=== PATIENT | male | born 1950 | race Caucasian/White ===

== ENCOUNTER 2019-03-16 11:38 | Day surgery (SDC) | payer MEDICARE, OTHER ==
[~2019-03-16] VITALS: Ht 167.6 cm; Wt 74.6 kg
[2019-03-16] MEDS ORDERED: ASPI81TA52 PO (12:22)
[2019-03-16] MEDS ORDERED: SOD CHLORIDE 0.9% 1,000 ML IV SCH (12:22)
[2019-03-16] MEDS ORDERED: ATOR-2 PO (12:23)
[2019-03-16] MEDS ORDERED: LIDOCAINE 1% (MDV) 20 ML INJ ONE (12:37)
[2019-03-16 12:55] VITALS: Ht 167.6 cm; Wt 74.6 kg
[2019-03-16 12:57] VITALS: BP 131/72; PULSE 64; RESP 16
--- NOTE | 2019-03-16 13:25 | PREAC ---
Date/Time of Note Date/Time of Note DATE: 03/16/19 TIME: 13:23 Anesthesia Eval and Record Evaluation Time Pre-Procedure Interview DATE: 03/16/19 TIME: 13:23 Age 69 Sex male NPO: 8 hrs Preoperative diagnosis Neutropenia Planned procedure Bone marrow Biopsy Past Medical History Past Medical History: Includes Cardio: HTN, Dyslipidemia Heme: Thrombocytopenia Surgery & Anesthesia Issues No known issue Meds Anticoagulation: No Beta Karel within 24 hr: No Reason Beta Karel not given: Pt. not on B-Karel Reported Medications Atorvastatin* (Atorvastatin*) 80 Mg Tablet, 80 MG PO QHS, #30 TAB 03/16/19 Aspirin (Low Dose Aspirin) 81 Mg Tablet.dr, 81 MG PO DAILY, #30 TAB 03/16/19 Current Medications Sodium Chloride 1,000 ml @ 30 mls/hr Q24H IV Last administered on 03/16/19at 12:51; Admin Dose 30 MLS/HR; Start 03/16/19 at 12:22 Meds reviewed: Yes Allergies Coded Allergies: No Known Allergy (Verified , 03/16/19) Allergies Reviewed: Yes Labs/Studies Labs Reviewed: Reviewed by anesthesiologist test: N/A Studies: ECG Pre-procedure Exam Last vitals Vital Signs Date Temp Pulse Resp B/P (MAP) Pulse Ox O2 O2 Flow FiO2 Time Delivery Rate 03/16/19 97.9 64 16 131/72 99 Room Air 12:57 (91) Airway: Adequate mouth opening, Adequate thyromental dist Mallampati: Mallampati II Teeth: Normal Lung: Normal Heart: Normal ASA Physical Status ASA physical status: 3 Emergency: None Planned Anesthetic General/MAC: MAC Planned Pain Management Parenteral pain med Pre-operative Attestations Prior to commencing anesthesia and surgery, the patient was re-evaluated, there was verification of: *The patient's identity *The results of appropriate recent lab work and preoperative vital signs *The above evaluation not changing prior to induction *Anesthetic plan, risk benefits, alternative and complications discussed with patient/family; questions answered; patient/family understands, accepts and wishes to proceed. SHAVONNE PHOENIX MD March 16, 2019 13:25
[2019-03-16] MEDS ORDERED: FENTAnyl 50 MCG/ML VIAL ONE (13:27)
[2019-03-16] MEDS ORDERED: PROPOFOL 40 ML ONE (13:27)
[2019-03-16] MEDS ORDERED: MIDAZOLAM 1 MG/ML 2 ML INJ ONE (13:27)
[2019-03-16] MEDS ORDERED: LIDOCAINE 2% (SDV) 5 ML INJ ONE (13:27)
[2019-03-16 14:16] VITALS: BP 126/62; PULSE 87; RESP 20
[2019-03-16 14:20] VITALS: BP 120/74; PULSE 66; RESP 22
--- NOTE | 2019-03-16 14:21 | PAC ---
Date/Time of Note Date/Time of Note DATE: 03/16/19 TIME: 14:21 Post-Anesthesia Notes Post-Anesthesia Note Last documented vital signs Vital Signs Date Temp Pulse Resp B/P (MAP) Pulse Ox O2 O2 Flow FiO2 Time Delivery Rate 03/16/19 97.9 64 16 131/72 99 Room Air 12:57 (91) Activity: WNL Respiratory function: WNL Cardiovascular function: WNL Mental status: Baseline Pain reasonably controlled: Yes Hydration appropriate: Yes Nausea/Vomiting absent: Yes Comments BP:125/76, P:68, Spo2:100%, T:98,8 SHAVONNE PHOENIX MD March 16, 2019 14:21
[2019-03-16 14:25] VITALS: BP 122/74; PULSE 64; RESP 15
[2019-03-16 14:30] VITALS: BP 117/71; PULSE 64; RESP 14
[2019-03-16] MEDS ORDERED: FENTAnyl 50 MCG/ML VIAL IV PRN (14:30)
[2019-03-16] MEDS ORDERED: MEPERIDINE 25 MG INJ IV PRN (14:30)
[2019-03-16] MEDS ORDERED: ONDANSETRON 4 MG INJ IV PRN (14:30)
[2019-03-16] MEDS ORDERED: HYDROmorphONE 1 MG/5 ML IV SYRINGE IV PRN (14:30)
[2019-03-16] MEDS ORDERED: METOCLOPRAMIDE 10 MG INJ IV PRN (14:30)
[2019-03-16] MEDS ORDERED: DIPHENHYDRAMINE 50 MG INJ IV PRN (14:30)
[2019-03-16 14:40] VITALS: BP 126/75; PULSE 63; RESP 16
== END 2019-03-16 16:40 | disposition home or self-care (01) ==
LOC: SDS 11:38 → RAD 11:38
PROVIDERS: ATTEND Radiology Diagnostic Radiology
DX: D69.6 Thrombocytopenia, unspecified (principal); I10 Essential (primary) hypertension; E78.5 Hyperlipidemia, unspecified
CPT/HCPCS: 77012; 88305; 88313; J2250; J3010